=== PATIENT | female | born 1955 | race Caucasian/White ===

== ENCOUNTER 2019-02-24 11:24 | Emergency (ER) | payer OTHER ==
[~2019-02-24] VITALS: Ht 157.5 cm; Wt 104.3 kg
--- OUTSIDE RECORDS SUMMARY | 2019-02-24 11:26 | XMS REPORT ---
[facility] Address Unknown Phone Unavailable Care Team Providers Care Manager Residential Name Role Phone Unavailable Unavailable Problems This patient has no known problems. Allergies, Adverse Reactions, Alerts This patient has no known allergies or adverse reactions. Medications This patient has no known medications. Encounters Start Date/Time End Date/Time Encounter Type Admission Type Attending [facility] Care Department Encounter ID 2018-10-13 00:00:00 2018-10-13 00:00:00 Outpatient [facility] [id number] 2018-09-23 00:00:00 2018-09-23 00:00:00 Outpatient [facility] [id number] 2018-09-11 00:00:00 2018-09-11 00:00:00 Outpatient [facility] [id number] 2018-08-25 13:56:08 2018-08-25 13:56:08 Outpatient [facility] [id number] 2018-08-11 15:33:47 2018-08-11 15:33:47 Outpatient [facility] [id number] 2018-08-11 13:59:24 2018-08-11 13:59:24 Outpatient [facility] [id number] 2018-08-04 00:00:00 2018-08-04 00:00:00 Outpatient [facility] [id number] 2018-07-09 08:29:24 2018-07-09 08:29:24 Outpatient [facility] [id number] 2018-07-08 00:00:00 2018-07-08 00:00:00 Outpatient [facility] [id number] 2018-06-09 11:21:33 2018-06-09 11:21:33 Outpatient [facility] [id number] 2018-06-02 00:00:00 2018-06-02 00:00:00 Outpatient [facility] [id number] 2018-05-29 00:00:00 2018-05-29 00:00:00 Outpatient [facility] [id number] 2018-05-22 00:00:00 2018-05-22 00:00:00 Outpatient [facility] [id number] 2018-05-19 00:00:00 2018-05-19 00:00:00 Outpatient [facility] [id number] 2018-05-16 08:48:22 2018-05-16 08:48:22 Outpatient [facility] [id number] 2018-05-16 08:27:09 2018-05-16 08:27:09 Outpatient [facility] [id number] 2018-05-16 00:00:00 2018-05-16 00:00:00 Outpatient [facility] [id number] 2018-05-15 00:00:00 2018-05-15 00:00:00 Outpatient [facility] [id number] 2018-05-15 00:00:00 2018-05-15 00:00:00 Outpatient [facility] [id number] 2018-04-25 14:41:32 2018-04-25 14:41:32 Outpatient [facility] [id number] 2018-04-14 07:52:56 2018-04-14 07:52:56 Outpatient [facility] [id number] 2018-04-14 00:00:00 2018-04-14 00:00:00 Outpatient [facility] [id number] 2018-04-14 00:00:00 2018-04-14 00:00:00 Outpatient [facility] [id number] 2018-04-10 00:00:00 2018-04-10 00:00:00 Outpatient [facility] [id number] 2018-04-07 00:00:00 2018-04-07 00:00:00 Outpatient [facility] [id number] 2018-03-27 08:37:00 2018-03-27 08:37:00 Outpatient [facility] [id number] 2018-03-04 00:00:00 2018-03-04 00:00:00 Outpatient [facility] [id number] 2018-02-25 09:44:51 2018-02-25 09:44:51 Outpatient [facility] [id number] 2018-02-12 14:09:06 2018-02-12 14:09:06 Outpatient [facility] [id number] 2018-02-07 00:00:00 2018-02-07 00:00:00 Outpatient [facility] [id number] 2018-02-06 00:00:00 2018-02-06 00:00:00 Outpatient [facility] [id number] 2018-02-05 08:44:13 2018-02-05 08:44:13 Outpatient [facility] [id number] 2018-01-13 00:00:00 2018-01-13 00:00:00 Outpatient [facility] [id number] 2017-12-26 00:00:00 2017-12-26 00:00:00 Outpatient [facility] [id number] 2017-12-16 00:00:00 2017-12-16 00:00:00 Outpatient [facility] [id number] 2017-12-09 13:41:29 2017-12-09 13:41:29 Outpatient [facility] [id number] 2017-12-09 11:21:42 2017-12-09 11:21:42 Outpatient [facility] [id number] 2017-11-28 13:46:03 2017-11-28 13:46:03 Outpatient [facility] [id number] 2017-11-18 15:47:00 2017-11-18 15:47:00 Outpatient [facility] [id number] 2017-11-18 00:00:00 2017-11-18 00:00:00 Outpatient [facility] [id number] 2017-11-05 15:36:31 2017-11-05 15:36:31 Outpatient [facility] [id number] 2017-11-05 00:00:00 2017-11-05 00:00:00 Outpatient [facility] [id number] 2017-11-04 13:56:38 2017-11-04 13:56:38 Outpatient [facility] [id number] 2017-10-23 00:00:00 2017-10-23 00:00:00 Outpatient [facility] [id number] 2017-10-17 00:00:00 2017-10-17 00:00:00 Outpatient [facility] [id number] 2017-10-16 10:52:59 2017-10-16 10:52:59 Outpatient [facility] [id number] 2017-10-16 10:20:46 2017-10-16 10:20:46 Outpatient [facility] [id number] 2017-10-14 08:08:52 2017-10-14 08:08:52 Outpatient [facility] [id number] 2017-10-14 08:08:50 2017-10-14 08:08:50 Outpatient [facility] [id number] 2017-10-10 00:00:00 2017-10-10 00:00:00 Outpatient [facility] [id number] 2017-10-07 12:56:46 2017-10-07 12:56:46 Outpatient [facility] [id number] 2017-10-07 00:00:00 2017-10-07 00:00:00 Outpatient [facility] [id number] 2017-10-02 00:00:00 2017-10-02 00:00:00 Outpatient [facility] [id number] 2017-09-30 00:00:00 2017-09-30 00:00:00 Outpatient [facility] [id number] 2017-09-23 11:35:08 2017-09-23 11:35:08 Outpatient [facility] [id number] 2017-09-23 10:32:10 2017-09-23 10:32:10 Outpatient [facility] [id number] 2017-09-19 00:00:00 2017-09-19 00:00:00 Outpatient [facility] [id number] 2017-09-19 00:00:00 2017-09-19 00:00:00 Outpatient [facility] [id number] 2017-09-17 00:00:00 2017-09-17 00:00:00 Outpatient [facility] [id number] 2017-09-05 00:00:00 2017-09-05 00:00:00 Outpatient [facility] [id number] 2017-09-04 12:57:52 2017-09-04 12:57:52 Outpatient [facility] [id number] 2017-08-13 00:00:00 2017-08-13 00:00:00 Outpatient [facility] [id number] 2017-08-05 00:00:00 2017-08-05 00:00:00 Outpatient [facility] [id number] 2017-07-01 00:00:00 2017-07-01 00:00:00 Outpatient [facility] [id number] 2017-07-01 00:00:00 2017-07-01 00:00:00 Outpatient [facility] [id number] 2017-06-04 00:00:00 2017-06-04 00:00:00 Outpatient [facility] [id number]
--- NOTE | 2019-02-24 15:47 | NUR ---
PATIENT REFUSING TO TAKE TYLENOL FOR 100.3, SHE STATES, "ILL TAKE MY [facility] TYLENOL WHEN I GET HOME"
--- NOTE | 2019-02-24 16:25 | Diagnostic Imaging Report ---
EXAMINATION: CHEST 2 VIEWS INDICATION: Cough, shortness of breath COMPARISON: Chest radiograph of 09/16/2010 FINDINGS: TUBES and LINES: None. LUNGS: The lung volumes are normal. No focal consolidation or pulmonary edema. PLEURA: No pleural effusion or pneumothorax. HEART AND MEDIASTINUM: The cardiomediastinal silhouette is normal in size and contour. BONES AND SOFT TISSUES: No acute fracture or dislocation. Mild degenerative changes of the visualized spine. UPPER ABDOMEN: No free air under the diaphragm. IMPRESSION: No focal pneumonia or pulmonary edema. Signed by: José Preston MD on 02/24/2019 4:22 PM
== END 2019-02-24 15:57 | disposition home or self-care (01) ==
LOC: ER 11:24
DX: R50.9 Fever, unspecified (principal); R05 Cough; J20.9 Acute bronchitis, unspecified
CPT/HCPCS: 36415; 71046; 82948; 87400; 99283

== ENCOUNTER 2019-04-14 17:27 | Emergency (ER) | payer OTHER ==
[~2019-04-14] VITALS: Ht 157.5 cm; Wt 104.3 kg
[2019-04-14] MEDS ORDERED: IBUPROFEN 600 MG TAB PO ONE (18:06)
[2019-04-14 18:08] LABS: BILIRUBIN,URINE NEGATIVE (NEGATIVE); CLARITY,URINE CLEAR (CLEAR); COLOR,URINE YELLOW (YELLOW); KETONES,URINE NEGATIVE (NEGATIVE); LEUKOCYTE ESTERASE ,URINE NEGATIVE (NEGATIVE); NITRITE,URINE NEGATIVE (NEGATIVE); PROTEIN,URINE DIPSTICK NEGATIVE (NEGATIVE); URINE UROBILINOGEN 0.2 mg/dL (0.2 - 1)
[2019-04-14 18:23] LABS: EPITHELIAL CELLS,URINE RARE /LPF
== END 2019-04-14 20:50 | disposition home or self-care (01) ==
LOC: ER 17:27
DX: S39.011A Strain of muscle, fascia and tendon of abdomen, initial encounter (principal); X58.XXXA Exposure to other specified factors, initial encounter; I10 Essential (primary) hypertension; E11.9 Type 2 diabetes mellitus without complications; J44.9 Chronic obstructive pulmonary disease, unspecified; E78.5 Hyperlipidemia, unspecified; Z88.1 Allergy status to other antibiotic agents
CPT/HCPCS: 81001; 99283